=== PATIENT | male | born 1985 | race Caucasian/White ===

== ENCOUNTER 2025-09-27 01:07 | Emergency (ER) | payer OTHER ==
[~2025-09-27] VITALS: Ht 167.6 cm; Wt 79.4 kg
[~2025-09-27 01:07] MED LIST: Amoxicillin500 MG PO; CYCL10 PO; HYDACE5 PO; IBUP800 PO; LIDO2L TOP; NAPR550 PO; Norco 5-325 Ta1 EACH PO; ONDA4 PO; OXYACE5T PO; PENVK500 PO; PROM25 PO; RXNAPNA550 PO; SULTRIDS PO; Ultram50 MG PO; Veetids 500500 MG PO; Vibramycin100 MG PO
[2025-09-27 03:29] VITALS: BP 127/93
[2025-09-27] MEDS ORDERED: Robaxin750 MG PO (04:22)
== END 2025-09-27 04:42 | disposition home or self-care (01) ==
LOC: ER 01:07
DX: S86.912A Strain of unspecified muscle(s) and tendon(s) at lower leg level, left leg, initial encounter (principal); X58.XXXA Exposure to other specified factors, initial encounter; Z79.899 Other long term (current) drug therapy; Z87.891 Personal history of nicotine dependence
CPT/HCPCS: 99283